=== PATIENT | male | born 1975 | race African-American/Black ===

== ENCOUNTER 2025-02-27 11:07 | Emergency (ER) | payer MEDICAID, OTHER ==
[~2025-02-27] VITALS: Ht 172.7 cm; Wt 108.9 kg
[2025-02-27] MEDS ORDERED: APIX2.5T PO (11:15)
[2025-02-27 11:41] LABS: PLATELET COUNT (AUTO) 249 K/uL (152-348); RED BLOOD CELL COUNT(AUTO) 4.97 MIL/uL (4.06-5.63); RED CELL DISTRIBUTION WIDTH 14.8 % (12.1-16.2); WHITE BLOOD COUNT (AUTO) 5.9 K/uL (3.6-10.2)
[2025-02-27 11:51] LABS: CREATININE 0.9 mg/dL (0.6-1.3); SODIUM SERUM 141 mmol/L (136-145); UREA NITROGEN, BLOOD 8 mg/dL (7-18)
[2025-02-27] MEDS ORDERED: APIX5TAB4 PO (11:55)
[2025-02-27 11:56] LABS: ASPARTATE AMINOTRANSFERASE 9 U/L (15-37); TOTAL PROTEIN, SERUM 7.4 g/dL (6.4-8.2)
[2025-02-27] MEDS ORDERED: APIXABAN 5 MG TABLET ONE (12:11)
[2025-02-27] MEDS: APIXABAN 5 MG TABLET PO ONE (12:17)
[2025-02-27] MEDS ORDERED: IOHEXOL 350 100 ML INFUS..BTL ONE (12:39)
[2025-02-27 14:48] VITALS: BP 126/57
[2025-02-27 15:05] VITALS: BP 126/57; TEMP 98.5; O2SAT 100
== END 2025-02-27 15:05 | disposition home or self-care (01) ==
LOC: ER 11:07
DX: I26.99 Other pulmonary embolism without acute cor pulmonale (principal); I82.401 Acute embolism and thrombosis of unspecified deep veins of right lower extremity; R07.9 Chest pain, unspecified; M79.605 Pain in left leg; M79.604 Pain in right leg; Z79.01 Long term (current) use of anticoagulants
CPT/HCPCS: 99285; 93970; 71275; 71045; 80076; 80048; 83880; 85025; 85379; 85730; 84484; 36415; 93005; Q9967; A4606; A4663